=== PATIENT | male | born 2000 | race Caucasian/White ===

== ENCOUNTER 2020-09-13 13:51 | Emergency (ER) | payer OTHER ==
[~2020-09-13] VITALS: Ht 170.2 cm; Wt 86.8 kg
--- NOTE | 2020-09-13 14:14 | REP ---
INDICATION: fell while snowboarding COMPARISON: None. TECHNIQUE: Two AP views of the left clavicle FINDINGS: Comminuted displaced midclavicular shaft fracture. Sternoclavicular and acromioclavicular joints appear intact. IMPRESSION: 1. Comminuted displaced midclavicular shaft fracture. <Electronically signed by Ronak Alanis > 09/13/20 [id number]
[2020-09-13] MEDS ORDERED: NORCO, ANEXSIA 5/325MG TABLET (HYDROcodone/ACETAMINOPHEN) PO ONE (14:50)
[2020-09-13] MEDS ORDERED: HYDR-3715 PO (14:56)
[2020-09-13 15:34] VITALS: BP 148/69
== END 2020-09-13 15:43 | disposition home or self-care (01) ==
LOC: M ED 13:51
DX: S42.022A Displaced fracture of shaft of left clavicle, initial encounter for closed fracture (principal); V00.311A Fall from snowboard, initial encounter; Y92.828 Other wilderness area as the place of occurrence of the external cause; Y93.23 Activity, snow (alpine) (downhill) skiing, snowboarding, sledding, tobogganing and snow tubing; Y99.9 Unspecified external cause status

== ENCOUNTER 2022-12-31 09:22 | Day surgery (SDC) | payer OTHER ==
[~2022-12-31] VITALS: Ht 172.7 cm; Wt 88.5 kg
[~2022-12-31 09:22] MED LIST: HYDR-3715 PO
[2022-12-31] MEDS ORDERED: LR 1,000 ML IV SCH (11:35)
[2022-12-31] MEDS ORDERED: METHYLENE BLUE 0.5% (5MG/ML) 10 ML AMP (PROVAYBLUE) As Ordered ONE (12:58)
[2022-12-31] MEDS ORDERED: EPINEPHrine 1MG/ML INJ 30ML MD-VIAL As Ordered ONE (12:59)
[2022-12-31] MEDS ORDERED: SODIUM CHLORIDE 0.9% NASAL GEL 15GM (AYR) As Ordered ONE (12:59)
[2022-12-31] MEDS ORDERED: LIDOCAINE W/EPINEPHRINE 1% 20ML VIAL As Ordered ONE (12:59)
[2022-12-31] MEDS ORDERED: ROCURONIUM BROMIDE 50MG/5ML VIAL As Ordered ONE (13:05)
[2022-12-31] MEDS ORDERED: ONDANSETRON 4MG 2ML VIAL As Ordered ONE (13:05)
[2022-12-31] MEDS ORDERED: LIDOCAINE 2% 100MG/5ML SDV (FOR ANES.) As Ordered ONE (13:05)
[2022-12-31] MEDS ORDERED: propofoL 200 MG/20 ML VIAL As Ordered ONE (13:05)
[2022-12-31] MEDS ORDERED: SUGAMMADEX SODIUM 500 MG/5 ML VIAL (BRIDION) As Ordered ONE (13:05)
[2022-12-31] MEDS ORDERED: fentaNYL 100 MCG/2 ML INJECTION As Ordered ONE ×2 (13:24→14:00)
[2022-12-31] MEDS ORDERED: MIDAZOLAM INJ 2MG/2ML VIAL As Ordered ONE (13:25)
[2022-12-31] MEDS ORDERED: ACETAMINOPHEN 1000MG 100ML IV BAG As Ordered ONE (13:50)
[2022-12-31] MEDS ORDERED: LABETALOL 100MG/20ML VIAL As Ordered ONE (14:27)
[2022-12-31] MEDS ORDERED: MORPHINE 2 MG/ML 1ML VIAL IV PRN (14:50)
[2022-12-31] MEDS ORDERED: fentaNYL 100 MCG/2 ML INJECTION IV PRN (14:50)
[2022-12-31] MEDS ORDERED: oxyCODONE 5MG TAB PO PRN (14:50)
[2022-12-31] MEDS ORDERED: ONDANSETRON 4MG 2ML VIAL IV PRN (14:50)
[2022-12-31] MEDS ORDERED: AUGMENTIN 875 MG TAB PO ONE (15:35)
[2022-12-31] MEDS ORDERED: diphenhydrAMINE 50MG/ML VIAL IV ONE (16:00)
[2022-12-31 16:49] VITALS: BP 155/86; TEMP 98.6; O2SAT 100
== END 2022-12-31 16:59 | disposition home or self-care (01) ==
LOC: M SDC 09:22
PROVIDERS: ATTEND Otolaryngology
DX: J34.2 Deviated nasal septum (principal)
CPT/HCPCS: 30520; 88300; J0131; J0171; J1100; J1200; J2250; J2405; J3010; Q9968